=== PATIENT | male | born 1995 | race Caucasian/White ===

== ENCOUNTER 2021-05-03 17:57 | Emergency (ER) | payer OTHER ==
[~2021-05-03] VITALS: Ht 180.3 cm; Wt 63.5 kg
[2021-05-03] MEDS ORDERED: CRUTCH1 EACH MISC (20:29)
== END 2021-05-03 20:51 | disposition home or self-care (01) ==
LOC: ED 17:57
DX: S93.401A Sprain of unspecified ligament of right ankle, initial encounter (principal); V28.4XXA Motorcycle driver injured in noncollision transport accident in traffic accident, initial encounter
CPT/HCPCS: 73610; 99283-25